=== PATIENT | female | born 1970 | race Hispanic/Latino ===

== ENCOUNTER 2017-06-03 15:56 | Emergency (ER) | payer BC ==
[2017-06-03 16:06] VITALS: BP 119/81; PULSE 68; RESP 18; TEMP 98.6; O2SAT 99
[2017-06-03] MEDS ORDERED: Sodium Chloride 0.9% 1,000 ML IV STA (16:22)
--- NOTE | 2017-06-03 16:25 | ED PDOC ---
HPI: Abdomen Time Seen by Provider: 06/03/17 16:07 Chief Complaint (Nursing): Abdominal Pain Chief Complaint (Provider): Abdominal Pain History Per: Patient History/Exam Limitations: no limitations Onset/Duration Of Symptoms: Days (x1) Current Symptoms Are (Timing): Still Present Additional Complaint(s): Georgia Bridges is a 47 year old female who presents to the emergency department, referred by PCP, with a complaint of right upper abdominal pain ongoing since 0200 today. Denied fever, chills, nausea, vomiting, dysuria, hematuria, radiation of pain to shoulders or back. LMP: 2 weeks ago PMD: Mathew Crowell MD Past Medical History Reviewed: Historical Data, Nursing Documentation, Vital Signs Vital Signs: Last Vital Signs Temp 98.6 F 06/03/17 16:03 Pulse 68 06/03/17 16:03 Resp 18 06/03/17 16:03 BP 119/81 06/03/17 16:03 Pulse Ox 99 06/03/17 16:33 - Medical History PMH: No Chronic Diseases - Surgical History Surgical History: No Surg Hx - Family History Family History: States: Other Other Family History: father-pancreatitis - Social History Current smoker - smoking cessation education provided: No Ex-Smoker (has not smoked in the last 12 months): No Alcohol: Occasional Drugs: Denies - Home Medications Home Medications: Ambulatory Orders Medication Instructions Recorded No Known Home Med 06/03/17 - Allergies Allergies/Adverse Reactions: Allergies Allergy/AdvReac Type Severity Reaction Status Date / Time No Known Allergies Allergy Unverified 11/08/13 13:13 Review of Systems ROS Statement: Except As Marked, All Systems Reviewed And Found Negative Constitutional: Negative for: Fever, Chills Gastrointestinal: Positive for: Abdominal Pain (RUQ). Negative for: Nausea, Vomiting, Other (radiation of pain) Genitourinary Female: Negative for: Dysuria, Hematuria Musculoskeletal: Negative for: Shoulder Pain, Back Pain Physical Exam - Reviewed Nursing Documentation Reviewed: Yes Vital Signs Reviewed: Yes - Physical Exam Appears: Positive for: Well, Non-toxic, No Acute Distress Head Exam: Positive for: ATRAUMATIC, NORMAL INSPECTION, NORMOCEPHALIC Skin: Positive for: Normal Color Eye Exam: Positive for: Normal appearance, EOMI, PERRL. Negative for: Nystagmus ENT: Positive for: Normal ENT Inspection (normal mucosa) Neck: Positive for: Normal, Painless ROM, Supple. Negative for: Decreased ROM Cardiovascular/Chest: Positive for: Regular Rate, Rhythm. Negative for: Chest Non Tender Respiratory: Positive for: Normal Breath Sounds, Accessory Muscle Use. Negative for: Decreased Breath Sounds, Respiratory Distress Gastrointestinal/Abdominal: Positive for: Soft, Tenderness (mild RUQ; positive Segovia sign's). Negative for: Normal Exam, Mass Back: Positive for: Normal Inspection. Negative for: L CVA Tenderness, R CVA Tenderness Extremity: Positive for: Normal ROM. Negative for: Tenderness, Pedal Edema, Deformity DTR - Ankle (R): 2+ DTR - Ankle (L): 2+ Neurologic/Psych: Positive for: Alert (x3), Oriented - ECG O2 Sat by Pulse Oximetry: 99 (RA) Pulse Ox Interpretation: Normal Medical Decision Making Medical Decision Making: Initial Impression: RUQ pain R/O gallstones Initial Plan: * US ABD * CBC * Urine dipstick * Urine * CMP * Lipase * NS 1,000ml IV per 1,000mls/hr Scribe Attestation: Documented by Kylah Fung, acting as a scribe for Erica Salamanca MD. Provider Scribe Attestation: All medical record entries made by the Scribe were at my direction and personally dictated by me. I have reviewed the chart and agree that the record accurately reflects my personal performance of the history, physical exam, medical decision making, and the department course for this patient. I have also personally directed, reviewed, and agree with the discharge instructions and disposition. Disposition - Clinical Impression Clinical Impression: RUQ pain - Patient ED Disposition Is Patient to be Admitted: Transfer of Care - Disposition Disposition: Transfer of Care Disposition Time: 16:40 Condition: STABLE Forms: In[employer] ([place]) Patient Signed Over To: Nelda Kitchen (pending GB workup) - POA Present On Arrival: None
[2017-06-03 17:13] LABS: RBC URINE 2 /hpf (0-3); URINE BACTERIA RARE (<OCC); URINE BILIRUBIN NEGATIVE (NEGATIVE); URINE BLOOD NEGATIVE (NEGATIVE); URINE COLOR YELLOW (YELLOW); URINE GLUCOSE (UA) NEG (Normal); URINE KETONE NEGATIVE (NEGATIVE); URINE LEUKOCYTE ESTERASE SMALL Leu/uL (Negative); URINE PROTEIN NEGATIVE (NEGATIVE); URINE UROBILINOGEN 0.2-1.0 mg/dL (0.2-1.0); WBC URINE 10 /hpf (0-5)
--- NOTE | 2017-06-03 17:13 | ED PDOC ---
- Laboratory Results Result Diagrams: 06/03/17 16:50 06/03/17 17:12 - ECG O2 Sat by Pulse Oximetry: 99 (RA) Pulse Ox Interpretation: Normal Medical Decision Making Medical Decision Making: Time: 1700 --Patient was endorsed to provider by Dr. Erica Salamanca. Pending US ABD results and disposition. Time: 1754 --US ABD FINDINGS: LIVER: Measures 13.8 cm in sagittal dimension and appears within normal limits of size , shape, and echotexture. No focal hepatic mass identified. The main portal vein appears patent with normal directional flow. No intrahepatic bile duct dilatation. GALLBLADDER: No gallstones. No gallbladder wall thickening. Negative sonographic Segovia's sign as assessed by the cook fishing vessel. COMMON BILE DUCT: Measures 4 mm. PANCREAS: Not well visualized. RIGHT KIDNEY: Measures 12.0 x 4.4 x 4.7cm. No obstructing calculus or hydronephrosis identified. LEFT KIDNEY: Measures 9.0 x 4.4 x 4.6cm. No obstructing calculus or hydronephrosis identified. SPLEEN: Measures approximately 10.8 cm. AORTA: Limited views appear unremarkable. IVC: Limited views appear unremarkable. OTHER FINDINGS: None. IMPRESSION: Echogenic liver may be seen in setting of hepatic parenchymal disease or fatty infiltration. Time: 1800 --Upon reevaluation, pt comfortable. DW pt findings. Scribe Attestation: Documented by Kylah Fung, acting as a scribe for Nelda Kitchen MD. Provider Scribe Attestation: All medical record entries made by the Scribe were at my direction and personally dictated by me. I have reviewed the chart and agree that the record accurately reflects my personal performance of the history, physical exam, medical decision making, and the department course for this patient. I have also personally directed, reviewed, and agree with the discharge instructions and disposition. Disposition Discussed With .: Mathew Crowell Doctor Will See Patient In The: ED Counseled Patient/Family Regarding: Studies Performed, Diagnosis, Need For Followup - Clinical Impression Clinical Impression: RUQ pain - POA Present On Arrival: None - Disposition Referrals: Mathew Crowell MD [Family Provider] - (FOLLOW UP WITH DR CROWELL FOR A REFERRAL TO GASTROENTEROLOGY) Disposition: Routine/Home Disposition Time: 18:00 Condition: STABLE Instructions: Abdominal Pain (ED)
[2017-06-03 17:21] LABS: BASO % 0.9 % (0.0-2.0); EOS # 0.2 K/uL (0.0-0.7); EOS % 4.5 % (0.0-4.0); HEMATOCRIT 36.3 % (34.0-47.0); LYMPH # 1.5 K/uL (1.0-4.3); LYMPH % 26.7 % (20.0-40.0); MEAN CELL VOLUME 94.3 fl (81.0-99.0); MEAN CORPUSCULAR HGB CONC 33.9 g/dL (33.0-37.0); MEAN PLATELET VOLUME 9.3 fl (7.2-11.7); MONO # 0.5 K/uL (0.0-0.8); MONO % 8.9 % (0.0-10.0); NEUT # 3.2 K/uL (1.8-7.0); NRBC % 0.1 % (0.0-0.0); RED CELL DISTRIBUTION WIDTH 12.6 % (11.5-14.5); WHITE BLOOD COUNT 5.5 K/uL (4.8-10.8)
[2017-06-03 17:44] LABS: ALB/GLOB RATIO 1.3 (1.0-2.1); ALKALINE PHOSPHATASE 46 U/L (38-126); ALT/SGPT 30 U/L (9-52); AST/SGOT 22 U/L (14-36); BILIRUBIN,TOTAL 0.4 mg/dl (0.2-1.3); BLOOD UREA NITROGEN 10 mg/dl (7-17); CALCIUM 8.9 mg/dL (8.4-10.2); CARBON DIOXIDE 26 mmol/L (22-30); CHLORIDE 102 mmol/L (98-107); GFR AFRICAN-AMERICAN > 60; GLUCOSE,RANDOM 88 mg/dL (65-105); LIPASE 101 U/L (23-300); POTASSIUM 3.8 MMOL/L (3.6-5.0); SODIUM 140 mmol/l (132-148)
--- NOTE | 2017-06-03 17:56 | US ---
HISTORY: ruq pain tenderness COMPARISON: None available. TECHNIQUE: Sonographic evaluation of the abdomen. FINDINGS: LIVER: Measures 13.8 cm in sagittal dimension and appears within normal limits of size, shape, and echotexture. No focal hepatic mass identified. The main portal vein appears patent with normal directional flow. No intrahepatic bile duct dilatation. GALLBLADDER: No gallstones. No gallbladder wall thickening. Negative sonographic Segovia's sign as assessed by the box toe cutter. COMMON BILE DUCT: Measures 4 mm. PANCREAS: Not well visualized. RIGHT KIDNEY: Measures 12.0 x 4.4 x 4.7cm. No obstructing calculus or hydronephrosis identified. LEFT KIDNEY: Measures 9.0 x 4.4 x 4.6cm. No obstructing calculus or hydronephrosis identified. SPLEEN: Measures approximately 10.8 cm. AORTA: Limited views appear unremarkable. IVC: Limited views appear unremarkable. OTHER FINDINGS: None. IMPRESSION: Echogenic liver may be seen in setting of hepatic parenchymal disease or fatty infiltration.
== END 2017-06-03 18:40 | disposition home or self-care (01) ==
LOC: H.ER 15:56
DX: R10.11 Right upper quadrant pain (principal)
CPT/HCPCS: 76700; 80053; 81003; 81025; 83690; 85025; 96360; 99282; J7040